=== PATIENT | male | born 1985 | race Caucasian/White ===

== ENCOUNTER 2017-11-26 18:27 | Emergency (ER) | payer BC, OTHER ==
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
[2017-11-26] MEDS ORDERED: Lidocaine 1% 50 ML MDV INJECT ONE (19:45)
--- NOTE | 2017-11-29 12:32 | CR ---
Nasal bone: Three views of the nasal bone were obtained. Slightly displaced nasal bone fracture is seen which is comminuted. Air fluid level is seen within the left maxillary sinus. No additional abnormality is appreciated. Impression: 1. Comminuted and mildly displaced nasal bone fracture. 2. Air-fluid level within the left maxillary sinus. Diagnostic code #3
== END 2017-11-26 21:05 | disposition home or self-care (01) ==
LOC: JD.ED 18:27
DX: S01.112A Laceration without foreign body of left eyelid and periocular area, initial encounter (principal); S01.21XA Laceration without foreign body of nose, initial encounter; Y04.2XXA Assault by strike against or bumped into by another person, initial encounter; Z87.891 Personal history of nicotine dependence
CPT/HCPCS: 12011; 70160; 70160-26; 99284-25

== ENCOUNTER 2018-09-21 22:50 | Emergency (ER) | payer BC ==
[2018-09-21] MEDS ORDERED: Budesonide 0.5 MG/2 ML Neb Susp NEB ONE (23:15)
[2018-09-21] MEDS ORDERED: Albuterol/Ipratropium 3.0-0.5 MG/3 ML Neb Soln NEB ONE (23:15)
--- NOTE | 2018-09-21 23:15 | EDM.PDOC ---
ED HPI GENERAL MEDICAL PROBLEM - General Chief Complaint: Respiratory Problem Stated Complaint: FEELS LIKE LUNGS ARE FULL OF FLUID Time Seen by Provider: 09/21/18 23:10 Source of Information: Reports: Patient History Limitations: Reports: No Limitations - History of Present Illness INITIAL COMMENTS - FREE TEXT/NARRATIVE: 33-year-old male presents to the ED due to severe paroxysmal cough that is dealt developed over the last week. He coughs so hard tonight while he was down at 5 alive--program outside on the [address] that he passed out. I.e. cough syncope. Her main unable to lie down flat to sleep for 3 days. Eyes any hemoptysis. Sputum is yellowish in color. Not sure about fever or chills. Appetite is good. He was seen in the walk-in clinic today and prescribed Zithromax and an albuterol inhaler. Chest x-ray was not done. Patient is exhibiting a severe paroxysmal cough in the ED intermittently. Onset: Gradual Onset Date: 09/14/18 Duration: Day(s):, Getting Worse Location: Reports: Chest (Severe paroxysmal cough) Quality: Reports: Other Severity: Severe (Paroxysmal cough with cough syncope tonight.) Improves with: Reports: None Worsens with: Reports: Other (Worsens with lying down or exposure to cool air such as air-conditioning.) Context: Reports: Other. Denies: Activity, Exercise, Lifting, Sick Contact, Trauma Associated Symptoms: Reports: cough w sputum (Spontaneous occurrence), Headaches , Malaise, Shortness of Breath, Weakness, Other (Syncope tonight from coughing so hard.). Denies: Diaphoresis, Fever/Chills, Nausea/Vomiting, Rash ( Subjective shortness of breath when he is coughing.), Seizure, Syncope Treatments [employer]: Reports: Other (see below) (Started azithromycin today.) Headache Pain Score (Numeric/FACES): 8 - Related Data Allergies Allergy/AdvReac Type Severity Reaction Status Date / Time No Known Allergies Allergy Verified 11/26/17 18:38 Home Meds: Home Meds Albuterol Sulfate [Proventil Hfa] 2 puff INH ASDIRECTED 09/21/18 [History] Azithromycin [Zithromax] 250 mg PO DAILY 09/21/18 [History] Doxycycline [Vibramycin] 100 mg PO BID #24 cap 09/21/18 [Rx] Hydrocodone/Chlorphen P-Stirex [Tussionex Pennkinetic Susp] 5 ml PO Q12H PRN # 60 ml 09/21/18 [Rx] predniSONE [Deltasone] 20 mg PO BID #14 tablet 09/21/18 [Rx] Past Medical History - Past Health History Medical/Surgical History: Denies Medical/Surgical History HEENT History: Reports: Other (See Below) Other HEENT History: fractured nose Social & Family History - Tobacco Use Smoking Status *Q: Former Smoker Tobacco Use Within Last Twelve Months: Cigarettes (Quit 3 weeks ago.) Used Tobacco, but Quit: Yes Month/Year Tobacco Last Used: 3 weeks - Caffeine Use Caffeine Use: Reports: Coffee, Energy Drinks, Soda, Tea - Recreational Drug Use Recreational Drug Use: No - Living Situation & Occupation Living situation: Reports: Single Occupation: Employed (Works in [employer] ED ROS GENERAL - Review of Systems Review Of Systems: See Below Constitutional: Reports: Malaise, Weakness, Fatigue. Denies: Fever, Chills HEENT: Reports: Rhinitis (Nasally congested.) Respiratory: Reports: Shortness of Breath, Wheezing, Cough, Sputum. Denies: Pleuritic Chest Pain, Hemoptysis (Yellow sputum at times.), Other Cardiovascular: Reports: Chest Pain, Lightheadedness, Orthopnea. Denies: Blood Pressure Problem, Claudication, Dyspnea on Exertion, Edema (From coughing.), Palpitations Endocrine: Reports: Fatigue (From not getting adequate sleep as of late. Cough is keeping her awake) GI/Abdominal: Reports: Nausea : Reports: No Symptoms (Occasional nausea from coughing so much) Musculoskeletal: Reports: No Symptoms Skin: Reports: No Symptoms Neurological: Reports: Syncope (Cough syncope this evening. Apparently went down to the pavement but did not get hurt. Dr. Michaels chiropractor attended him and advised him to come to the ED.) Psychiatric: Reports: No Symptoms Hematologic/Lymphatic: Reports: No Symptoms Immunologic: Reports: No Symptoms ED EXAM, GENERAL - Physical Exam Exam: See Below Exam Limited By: No Limitations General Appearance: Alert, WD/WN, No Apparent Distress, Other (Vital signs are all normal. Sats are 97% on room air with respiratory of 20. He does have a intermittent severe paroxysmal cough.) Eye Exam: Bilateral Eye: Normal Inspection Ears: Other (Is developing an early right otitis media. The left TM is normal) Nose: Nasal Swelling (Does have some swelling of the turbinates bilaterally. Minimal rhinorrhea which is clear) Throat/Mouth: Normal Inspection, Normal Lips, Normal Teeth, Normal Oropharynx, Other Head: Atraumatic (No signs of active pharyngeal infection), Normocephalic Neck: Normal Inspection, Supple, Non-Tender, Full Range of Motion. No: Lymphadenopathy (L), Lymphadenopathy (R) Respiratory/Chest: Respiratory Distress (Mild tachypnea at rest.), Decreased Breath Sounds (Sounds are mildly diminished to the bases.), Rhonchi (SCATTERED rhonchi right upper lung field.), Wheezing (Scattered wheezes anteriorly not heard posteriorly in the lower lung [place]) Cardiovascular: Normal Peripheral Pulses, Regular Rate, Rhythm, No Edema, No Gallop, No Murmur, No Rub Peripheral Pulses: 3+: Posterior Tibial (L), Posterior Tibial (R), Dorsalis Pedis (L), Dorsalis Pedis (R) GI/Abdominal: Normal Bowel Sounds, Soft, Non-Tender, No Organomegaly Extremities: Normal Inspection, Normal Range of Motion, Non-Tender, Other (No signs of extremity trauma from syncopal event.) Psychiatric: Normal Affect, Normal Mood Skin Exam: Warm, Dry, Intact, Normal Color, No Rash Course - Vital Signs Last Recorded V/S: Last Vital Signs Temp 36.5 C 09/21/18 23:05 Pulse 100 09/21/18 23:05 Resp 20 09/21/18 23:05 BP 136/84 09/21/18 23:05 Pulse Ox 98 09/21/18 23:30 - Orders/Labs/Meds Orders: Active Orders 24 hr Category Date Time Status RT Aerosol Therapy [RC] ASDIRECTED Care 09/21/18 23:15 Active Chest 2V [CR] Stat Exams 09/21/18 23:08 Taken Meds: Medications Discontinued Medications Generic Name Dose Route Start Last Admin Trade Name Freq PRN Reason Stop Dose Admin Albuterol/Ipratropium 3 ml 09/21/18 23:15 09/21/18 23:30 Duoneb 3.0-0.5 Mg/3 Ml NEB 09/21/18 23:16 3 ml ONETIME ONE Administration Budesonide 0.5 mg 09/21/18 23:15 09/21/18 23:30 Pulmicort NEB 09/21/18 23:16 0.5 mg ONETIME ONE Administration Prednisone 20 mg 09/21/18 23:50 Prednisone PO 09/21/18 23:51 ONETIME ONE Promethazine HCl/Codeine 20 ml 09/21/18 23:50 Phenergan With Codeine PO 09/21/18 23:51 ONETIME ONE - Radiology Interpretation Free Text/Narrative:: 33-year-old male presents to the ED for evaluation of severe paroxysmal cough greater than one week. Coughing up yellow sputum intermittently. Tonight the cough is so bad that he actually passed out or had cough syncope. The walk-in clinic earlier today and was started on a Z-Timo and albuterol inhaler. Office severe and paroxysmal particularly bad the last 3 days with inability to lie flat to sleep. Is reportedly productive of yellowish sputum. Exam reveals normal vital signs. Respiratory 20 with O2 sats of 97% on room air. Rhonchi appreciated right upper lung field with scattered wheezes. Plan two-view chest x -ray. Will give him a DuoNeb and Pulmicort inhalation treatment. - Re-Assessments/Exams Free Text/Narrative Re-Assessment/Exam: 09/21/18 23:28 2 view chest x-ray is negative for any pneumonia. Still has paroxysmal cough and doesn't feel that inhalational treatment made much difference. I'm going to give him 20 mils of Phenergan with codeine cough syrup to help bring his cough under control so that he might get some sleep tonight. I 'm going to prolong his antibiotic therapy with doxycycline 100 mg twice daily for 12 days. Prescribed steroid prednisone 20 mg now and then to be taken twice daily for the next 7 days to reduce inflammation of the ureter and receptors in his upper airway causing his severe paroxysmal cough. Tussionex cough syrup 5 mils at bedtime for the next several days until the cough comes under control. Follow-up as needed. Departure - Departure Time of Disposition: 23:51 Disposition: Home, Self-Care 01 Condition: Fair Clinical Impression: Bronchitis, Cough syncope syndrome - Discharge Information *PRESCRIPTION DRUG MONITORING PROGRAM REVIEWED*: No *COPY OF PRESCRIPTION DRUG MONITORING REPORT IN PATIENT RUSLAN: No Prescriptions: Doxycycline [Vibramycin] 100 mg PO BID #24 cap Hydrocodone/Chlorphen P-Stirex [Tussionex Pennkinetic Susp] 5 ml PO Q12H PRN # 60 ml PRN Reason: Cough relief predniSONE [Deltasone] 20 mg PO BID #14 tablet Instructions: Acute Bronchitis, Adult, [id number] Referrals: PCP,None [Primary Care Provider] - Forms: ED Department Discharge Additional Instructions: Evaluation in the emergency room tonight in regards to a syncopal event or faint secondary to severe paroxysmal cough. If I do been coughing hard over the last week worse the last 3 days to the point that she cannot lie flat to sleep. Cough is producing some yellow sputum. Recognized fever or chills. Emanation reveals some increased phlegm in the right upper lobe of the lung. X-ray two- view done but does not show any evidence of pneumonia. Therefore diagnosis is bronchitis with severe paroxysmal cough. Continue to finish up your Z-Timo as prescribed. Need to take new antibiotic doxycycline 100 mg twice daily for the next 12 days. Steroid prednisone 20 mg with breakfast and supper for 7 days to relieve inflammation of the upper airway. Initial dose of steroid given in the ED. Cough syrup is to be Tussionex suspension which is fairly potent. Take 5 mils about an hour before your plan to go to bed to help alleviate cough overnight. Should not operate a motor vehicle when you take the cough syrup. Primarily use at bedtime. You were given a dose of Phenergan with codeine cough syrup in the ED which will take about an hour to kick in which should help alleviate her cough for the next 6 or 8 hours. You're also given a inhaler treatment which contains to medications plus some inhalational steroid to help reduce upper airway inflammation over the next couple of hours. It often does not have any effect immediately. - My Orders Last 24 Hours: My Active Orders 09/21/18 23:08 Chest 2V [CR] Stat 09/21/18 23:15 RT Aerosol Therapy [RC] ASDIRECTED - Assessment/Plan Last 24 Hours: My Active Orders 09/21/18 23:08 Chest 2V [CR] Stat 09/21/18 23:15 RT Aerosol Therapy [RC] ASDIRECTED
[2018-09-21] MEDS ORDERED: Codeine/Promethazine 10-6.25 MG/5 ML Syrup 5 ML UD Cup PO ONE (23:50)
[2018-09-21] MEDS ORDERED: predniSONE 20 MG Tab PO ONE (23:50)
--- NOTE | 2018-09-22 08:33 | CR ---
Chest: Two views of the chest were obtained. Comparison: Prior chest x-ray of 12/02/17. Heart size and mediastinum are normal. Lungs are clear. Bony structures are unremarkable. Impression: 1. Nothing acute is seen on two-view chest x-ray. Diagnostic code #1
== END 2018-09-22 00:08 | disposition home or self-care (01) ==
LOC: JD.ED 22:50
DX: J40 Bronchitis, not specified as acute or chronic (principal); Z87.891 Personal history of nicotine dependence; Z79.899 Other long term (current) drug therapy
CPT/HCPCS: 71046; 94640; 99283; A9270; J7620-GY